=== PATIENT | male | born 1985 | race Caucasian/White ===

== ENCOUNTER 2017-06-30 23:21 | Emergency (ER) | payer OTHER ==
[2017-06-30 23:29] VITALS: BP 183/88
--- NOTE | 2017-06-30 23:36 | ED Physician Documentation ---
PD HPI UPPER EXT INJURY - Stated complaint Stated Complaint: RT THUMB INJURY - Chief complaint Chief Complaint: Ext Problem - History obtained from History obtained from: Patient, Family - History of Present Illness Location: Right, Other (thumb) Type of injury: Other (states walking the dog and it became caught in the leash) Where injury occurred: Home Timing - onset: How many hours ago (5) Pain level max: 6 Pain level now: 4 Improved by: Rest Worsened by: Moving, Palpating Associated symptoms: Swelling. No: Weakness, Numbness, Tingling Contributing factors: No: Anticoagulated, Prior ortho surgery Recently seen: Not recently seen - Additonal information Additional information: pt is right handed Review of Systems Skin: denies: Rash Neurologic: denies: Focal weakness, Numbness PD PAST MEDICAL HISTORY - Past Medical History Past Medical History: No - Past Surgical History Past Surgical History: No - Present Medications Home Medications: Ambulatory Orders Medication Instructions Recorded Confirmed No Known Home Medications [No 06/30/17 06/30/17 Known Home Medications] - Allergies Allergies/Adverse Reactions: Allergies Allergy/AdvReac Type Severity Reaction Status Date / Time Penicillins Allergy Rash Verified 06/30/17 23:26 - Social History Does the pt smoke?: No Smoking Status: Never smoker Does the pt drink ETOH?: No Does the pt have substance abuse?: No - Immunizations Immunizations are current?: Yes PD ED PE NORMAL - Vitals Vital signs reviewed: Yes - General General: Alert and oriented X 3, No acute distress - HEENT HEENT: Moist mucous membranes - Extremities Extremities: Other (R thumb - TTP over the IP joint. mild swelling. no laceration. FROM present. no tendon injury. NVI. no nail injury) - Neuro Neuro: Alert and oriented X 3 Results - Vitals Vitals: Vital Signs - 24 hr 06/30/17 23:26 Temperature 36.5 C Heart Rate 83 Respiratory 16 Rate Blood Pressure 183/88 H O2 Saturation 99 Oxygen O2 Source Room air - Rads (name of study) R thumb xray Radiology: Prelim report reviewed, EMP read contemporaneously, See rad report ( Comminuted intra-articular first distal phalangeal fracture. ) Procedures - Splint (location) R thumb spica Splint applied by: Physician, Tech Type of splint: Fiberglass, Thumb spica Other: Patient tolerated well, No complications, Neurovascular intact PD MEDICAL DECISION MAKING - ED course Complexity details: reviewed results, re-evaluated patient, considered differential, d/w patient, d/w family ED course: Patient is a 32-year-old male who presents to the emergency department with a right thumb injury. Has a comminuted intra-articular fracture of the distal phalanx of the right thumb. Placed in a thumb spica. Will follow up with orthopedics for further evaluation and care. Neurovascularly intact. Patient counseled regarding signs and symptoms for which I believe and urgent re- evaluation would be necessary. Patient with good understanding of and agreement to plan and is comfortable going home at this time This document was made in part using voice recognition software. While efforts are made to proofread this document, sound alike and grammatical errors may occur. Departure - Departure Disposition: 01 Home, Self Care Clinical Impression: Thumb fracture Qualifiers: Encounter type: initial encounter Fracture type: closed Phalanx: distal Fracture alignment: nondisplaced Laterality: right Qualified Code(s): S62.524A - Nondisplaced fracture of distal phalanx of right thumb, initial encounter for closed fracture Condition: Good Instructions: ED Fx Thumb Follow-Up: Sukumar Blanco MD [Primary Care Provider] - [facility] [Provider Group] - Within 1 week Comments: Return if you worsen. Keep the splint on until released by orthopedics. You can use motrin or tylenol for pain. Forms: Activity restrictions Discharge Date/Time: 07/01/17 00:24
--- NOTE | 2017-06-30 23:59 | XRAY Preliminary Report ---
Exam: XR FINGER(S) RT IMPRESSION: Comminuted intra-articular first distal phalangeal fracture. [facility] SITE ID: [id number]
--- NOTE | 2017-07-01 00:02 | XRAY Report ---
EXAM: RIGHT FIRST DIGIT RADIOGRAPHY EXAM DATE: 06/30/2017 11:50 PM. CLINICAL HISTORY: Right thumb injury on dog leash. COMPARISON: None. TECHNIQUE: 3 views. FINDINGS: Bones: Comminuted fracture of the first distal phalanx, with minimal displacement of the fracture fra gments and fracture lines extending into the interphalangeal joint. Joints: Normal. No subluxations. Soft Tissues: Swelling overlying the fracture site. IMPRESSION: Comminuted intra-articular first distal phalangeal fracture. [facility] Referring Provider Line: [phone] SITE ID: [id number]
== END 2017-07-01 00:24 | disposition home or self-care (01) ==
LOC: ED 23:21
DX: S62.521A Displaced fracture of distal phalanx of right thumb, initial encounter for closed fracture (principal); X50.1XXA Overexertion from prolonged static or awkward postures, initial encounter; Y93.K1 Activity, walking an animal
CPT/HCPCS: 29125; 73140; 99282; 99283

== ENCOUNTER 2018-01-21 10:22 | Outpatient (CLI) | payer OTHER ==
[2018-01-21] MEDS ORDERED: GADOBUTROL 10 MMOL/10 ML VIAL ONE (11:28)
[2018-01-21] MEDS ORDERED: GADOBUTROL 15 MMOL/15 ML VIAL ONE (11:32)
[2018-01-21] MEDS ORDERED: GADOBUTROL 15 MMOL/15 ML VIAL IVP ONE (11:39)
--- NOTE | 2018-01-22 09:42 | MRI Report ---
Procedure Date: 01/21/2018 Accession Number: [id number] / [id number] Procedure: MRI - Foot LT W/WO CPT Code: FULL RESULT: EXAM: LEFT FOREFOOT MRI WITHOUT AND WITH CONTRAST EXAM DATE: 01/21/2018 12:20 PM. CLINICAL HISTORY: Soft tissue mass lateral and dorsal aspect. COMPARISON: None. TECHNIQUE: Multiplanar, multisequence T1-weighted and fluid-sensitive sequences of the forefoot before and after administration of intravenous contrast. IV contrast: 11.5 mL of Gadavist. Other: None. FINDINGS: Bones: There is hallux valgus. The marrow appears unremarkable. There are no appreciable bony erosions or foci of marrow edema. Joints: No subluxations. No effusions. The lpycuc-ilcwbkie-mcihgeeldb complex is unremarkable. The visualized plantar plates are unremarkable. Articular Cartilage: Unremarkable. Ligaments: The visualized collateral ligaments are intact. Tendons: The flexor and extensor tendons are unremarkable. Musculature: No edema or fatty atrophy. Other: There is a 0.7 x 2.8 x 1.5 cm fluid containing structure overlying the plantar aspect of the fifth metatarsal head. The findings are suggestive of focal bursitis. IMPRESSION: 1. Fluid containing structure over the plantar aspect of the fifth metatarsal head suggestive of a focal bursitis. 2. No evidence of arthritis. [facility] MUSCULOSKELETAL RADIOLOGY SECTION
== END 2018-01-21 10:23 | disposition home or self-care (01) ==
LOC: DI 10:22
PROVIDERS: ATTEND Internal Medicine
DX: M79.672 Pain in left foot (principal); R20.0 Anesthesia of skin; M25.872 Other specified joint disorders, left ankle and foot
CPT/HCPCS: 73720; A9585

== ENCOUNTER 2019-08-24 08:01 | Outpatient (CLI) | payer OTHER ==
--- NOTE | 2019-08-24 19:49 | Ultrasound Report ---
Reason: LIVER ENZYMES ABNL Procedure Date: 08/24/2019 Accession Number: [id number] / [id number] Procedure: US - Abdomen Limited CPT Code: Final Report FULL RESULT: EXAM: ABDOMEN ULTRASOUND LIMITED, RUQ EXAM DATE: 08/24/2019 09:38 AM. CLINICAL HISTORY: Liver enzymes abnormal. COMPARISON: None. TECHNIQUE: Real-time scanning was performed with static images obtained. FINDINGS: Liver: Slightly coarse heterogeneous liver without focal nodules or masses. Liver is 16.2 cm. Main portal vein flow: Hepatopetal. Gallbladder: Normal. No stones, wall thickening, or sonographic Parsons's sign. Biliary System: CBD measures 4.0 mm. No intrahepatic or extrahepatic ductal dilatation. Other: Right kidney normal at 11.2 cm. Pancreas not well seen because of gas. IMPRESSION: 1. Slightly coarse heterogeneous liver without focal nodules or masses. Liver is 16.2 cm. Gallbladder normal. Common bile duct also unremarkable. [facility]
== END 2019-08-24 08:02 | disposition home or self-care (01) ==
LOC: DI 08:01
PROVIDERS: ATTEND Nurse Practitioner Family
DX: R74.8 Abnormal levels of other serum enzymes (principal)
CPT/HCPCS: 76705